=== PATIENT | female | born 1990 | race Caucasian/White ===

== ENCOUNTER 2024-02-22 08:56 | Outpatient (CLI) | payer BC, SELFPAY | END 2024-02-22 08:57 | disposition home or self-care (01) | PROVIDERS: PCP Family Medicine; Visit Provider Physician Assistant | DX: Z01.419 Encounter for gynecological examination (general) (routine) without abnormal findings (principal); N91.2 Amenorrhea, unspecified; Z13.6 Encounter for screening for cardiovascular disorders; Z13.1 Encounter for screening for diabetes mellitus | CPT/HCPCS: 80061; 83001; 84146; 84443 ==

== ENCOUNTER 2024-12-16 15:17 | Outpatient (CLI) | payer BC, SELFPAY ==
--- NOTE | 2024-12-16 15:30 | MR_ITS ---
EXAM: MRI of the LEFT KNEE, without contrast CLINICAL INFORMATION: Female, 34 years old, with knee pain INDICATION: Injury of the lower leg, evaluate for internal derangement PRIOR SURGERY: None reported. PLAIN FILMS: Radiographs . COMPARISONS: No prior MRIs available. TECHNICAL INFORMATION: Using a 1.5T MR scanner and a localizing surface coil: sagittals: PD, PDFS coronals: PD, T2FS axials: PD, PDFS SEDATION: None CONTRAST: None FINDINGS: Knee joint: Effusion: Physiologic left knee effusion. Popliteal cyst: None. Loose bodies: None. Subcutaneous and extra-articular soft tissues: Focal moderate prepatellar subcutaneous soft tissue edema/skin thickening, nonspecific. No bursitis Ligaments: ACL: Intact ACL anteromedial and posterolateral bundles, without sprain or tear. PCL: Intact PCL, without acute or chronic injury. MCL: Intact MCL superficial and deep layers, without injury. LCL: Intact LCL, without injury. Posterolateral corner: No posterolateral corner soft tissue injury. Popliteus, biceps femoris, iliotibial band, popliteofibular ligament and lateral gastrocnemius are intact. Posteromedial corner: Semimembranosus distal tendon is intact with trace insertional bursitis. Pes anserine tendons and posterior oblique ligament are without injury, tendinopathy or bursitis. Extensor mechanism: Patellar tendon: Intact, without tendinopathy. Quadriceps tendon: Intact, without tendinopathy. Retinacula: Medial and lateral retinacula are intact. Fat pads: Unremarkable infrapatellar Hoffa's, quadriceps and prefemoral fat pads. Medial compartment: Medial meniscus: No articular surface, meniscosynovial junction or root tear. No displacement, extrusion or parameniscal cyst. Medial femoral condyle: Mild grade I/II chondral heterogeneity along the central weightbearing medial femoral condyle (coronal series 7 image 19). Medial tibial plateau: No chondromalacia or osteochondral abnormality. Lateral compartment: Lateral meniscus: No articular surface, meniscosynovial junction or root tear. No displacement, extrusion or parameniscal cyst. Lateral femoral condyle: No chondromalacia or osteochondral abnormality. Lateral tibial plateau: No chondromalacia or osteochondral abnormality. Patellofemoral joint: Patella: No chondromalacia or osteochondral abnormality. Trochlea: No chondromalacia or osteochondral abnormality. Proximal tibiofibular joint: Unremarkable, without evidence of ligament sprain injury, joint effusion or adjacent marrow edema. Bones: No stress/occult fractures or other marrow edema/pathology. IMPRESSION: 1. 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 2. Semimembranosus distal tendon is intact with mild insertional bursitis. 3. No medial or lateral meniscus tear. 4. No cruciate or collateral ligament sprain/tear. 5. No knee joint effusion. KME Electronically signed on 12/17/2024 1:26:00 PM by Joyce Alcocer M.D.
== END 2024-12-16 15:18 | disposition home or self-care (01) ==
LOC: MRI 15:18
PROVIDERS: PCP Family Medicine; Visit Provider Physician Assistant
DX: M25.562 Pain in left knee (principal); M94.262 Chondromalacia, left knee; S89.92XA Unspecified injury of left lower leg, initial encounter
CPT/HCPCS: 73721